=== PATIENT | male | born 1935 | race Caucasian/White ===

== ENCOUNTER 2020-08-05 19:14 | Emergency (ER) | payer MEDICARE ==
[~2020-08-05] VITALS: Ht 172.7 cm; Wt 90.7 kg
[2020-08-05 19:15] VITALS: BP_SYST 183
[2020-08-05 20:26] LABS: BASOPHILS % (AUTO) 0.2 % (0.0-2.0); EOSINOPHILS # (AUTO) 1.1 K/uL (0.0-0.4); EOSINOPHILS % (AUTO) 11.6 % (0.0-4.0); HEMATOCRIT 39.5 % (36-54); HEMOGLOBIN 13.4 g/dL (14.0-18.0); LYMPHOCYTES # (AUTO) 0.2 K/uL (1.0-5.5); MEAN CORPUSCULAR HEMOGLOBIN 33 pg (27-31); MEAN CORPUSCULAR HGB CONC 34 % (32-36); MEAN CORPUSCULAR VOLUME 98 fL (79.0-98.0); MONOCYTES # (AUTO) 0.7 K/uL (0.0-1.0); MONOCYTES % (AUTO) 7.5 % (1.7-9.3); NEUTROPHILS # (AUTO) 7.6 K/uL (1.8-7.7); NEUTROPHILS % (AUTO) 78.7 % (40.0-70.0); PLATELET COUNT (AUTO) 174 K/uL (130-430); RED BLOOD CELL COUNT(AUTO) 4.03 MIL/uL (4.2-6.2); RED CELL DISTRIBUTION WIDTH 13.3 % (9.0-15.0); WHITE BLOOD COUNT (AUTO) 9.6 K/uL (4.8-10.8)
[2020-08-05 20:27] LABS: ANION GAP 3 (5-15); CALCIUM 9.4 mg/dL (8.4-11.0); CHLORIDE 97 mmol/L (98-107); CREATININE 2.76 mg/dL (0.55-1.30); GLUCOSE 168 mg/dL (70-99); POTASSIUM 4.3 mmol/L (3.5-5.1); SODIUM SERUM 130 mmol/L (136-145); UREA NITROGEN, BLOOD 32 mg/dL (8-21)
[2020-08-05] MEDS ORDERED: MAGNESIUM SULFATE 50 ML IV ONE (20:30)
[2020-08-05] MEDS ORDERED: methylPREDNISolone SOD SUCC/PF 62.5 MG/ML VIAL IVP ONE (20:30)
[2020-08-05 20:41] LABS: ALANINE AMINOTRANSFERASE 36 U/L (12-78); ALBUMIN 3.1 g/dL (3.4-4.8); ASPARTATE AMINOTRANSFERASE 19 U/L (10-37); TOTAL BILIRUBIN 0.3 mg/dL (0.0-1.0)
[2020-08-05] MEDS ORDERED: MORPHINE 2 MG/ML INJ. SYRINGE IVP ONE (21:30)
[2020-08-05 23:40] VITALS: BP_SYST 168
== END 2020-08-05 23:50 | disposition short-term general hospital (02) ==
LOC: SED 19:14
DX: J44.1 Chronic obstructive pulmonary disease with (acute) exacerbation (principal); E87.1 Hypo-osmolality and hyponatremia; N28.9 Disorder of kidney and ureter, unspecified; I11.0 Hypertensive heart disease with heart failure; I50.9 Heart failure, unspecified; G47.30 Sleep apnea, unspecified; E78.5 Hyperlipidemia, unspecified; Z88.6 Allergy status to analgesic agent; Z20.828 Contact with and (suspected) exposure to other viral communicable diseases
CPT/HCPCS: 36415; 36600; 71045; 80053; 82803; 82962; 83605; 83880; 85025; 87040; 87426; 93005; 96365; 96366; 96375; 99291; J2930; J3475

== ENCOUNTER 2024-04-25 14:06 | Emergency (ER) | payer MEDICARE ==
[~2024-04-25] VITALS: Ht 172.7 cm; Wt 104.3 kg
[2024-04-25 14:06] VITALS: BP_SYST 117; PULSE 91; RESP 19; TEMP 97; O2SAT 92
[2024-04-25] MEDS: BACITRACIN ZINC 15 GM TOPICAL OINTMENT TP ONE (14:30)
[2024-04-25] MEDS: IBUPROFEN 600 MG TABLET PO ONE (15:31)
[2024-04-25] MEDS ORDERED: BACITRACIN 1 GM OINT TP ONE (15:51)
[2024-04-25] MEDS ORDERED: CEPH-548 PO (17:03)
[2024-04-25] MEDS: cephALEXin 500 MG CAPSULE PO ONE (17:24)
[2024-04-25 18:30] VITALS: BP_SYST 127; PULSE 91; RESP 19; TEMP 97.4; O2SAT 94
== END 2024-04-25 18:30 | disposition home or self-care (01) ==
LOC: SED 14:06
DX: S50.312A Abrasion of left elbow, initial encounter (principal); S50.812A Abrasion of left forearm, initial encounter; I11.0 Hypertensive heart disease with heart failure; I50.9 Heart failure, unspecified; E78.5 Hyperlipidemia, unspecified; Z88.8 Allergy status to other drugs, medicaments and biological substances; W01.0XXA Fall on same level from slipping, tripping and stumbling without subsequent striking against object, initial encounter; Y93.89 Activity, other specified; Y92.89 Other specified places as the place of occurrence of the external cause; Y99.8 Other external cause status
CPT/HCPCS: 73090; 73590; 99284